=== PATIENT | female | born 1960 | race Caucasian/White ===

== ENCOUNTER → 2018-04-18 | Outpatient (CLI) | payer BC ==
--- NOTE | 2018-04-18 13:32 | Diagnostic Imaging Report ---
INDICATION: Low back pain. TIME OF EXAM: 11:35 AM FINDINGS: There is mild left convexity lumbar scoliotic curvature. There is normal lordotic curvature. Mild grade 1 spondylolisthesis of L4 on L5 is noted. Vertebral body heights are maintained. No acute compression fractures identified. There is some generalized degenerative disc disease with variable disc space narrowing and marginal spurring, greatest at L1-2 level. IMPRESSION: Mild lumbar scoliosis, spondylosis and spondylolisthesis, as described. No acute bony abnormality is detected. Dictated by: Dictated on workstation # [id number]
== END ==
LOC: RAD 11:21
PROVIDERS: ATTEND Nurse Practitioner Family
DX: M47.816 Spondylosis without myelopathy or radiculopathy, lumbar region (principal); M41.86 Other forms of scoliosis, lumbar region; M43.16 Spondylolisthesis, lumbar region
CPT/HCPCS: 72100

== ENCOUNTER 2019-03-13 05:34 | Outpatient (CLI) | payer BC ==
[~2019-03-13] VITALS: Ht 160 cm; Wt 75.9 kg
[2019-03-13] MEDS ORDERED: DILT120T3 PO (14:38)
[2019-03-13] MEDS ORDERED: RT-ALBUINH IH (14:38)
[2019-03-13] MEDS ORDERED: LOSA100T57 PO (14:38)
== END 2019-03-13 14:40 | disposition home or self-care (01) ==
LOC: PREOP 05:34
PROVIDERS: ATTEND Surgery
DX: Z01.818 Encounter for other preprocedural examination (principal)

== ENCOUNTER 2019-03-17 10:23 | Day surgery (SDC) | payer BC ==
--- NOTE | 2019-03-09 17:05 | HISTORY AND PHYSICAL ---
DATE OF SERVICE: PROCEDURE DATE: 03/17/2019. ATTENDING PRIMARY CARE PHYSICIAN: Dr. Harry. HISTORY OF PRESENT ILLNESS: The patient is a 58-year-old female who was referred over to us for episodes of reflux as well as what she reports as food getting caught in her throat. She reports this has been going on for approximately two months. She denies any nausea, vomiting and reports this is usually worse with more thicker foods as well as dry meats. She does report a history of gastroesophageal reflux disease and has been on medication in the past; however, has watched her diet and had been able to mostly controlled; however, has since developed this dysphagia. She denies any hematemesis as well as no epigastric pain or discomfort. She also reports she is in need of a colonoscopy and reports she has never had one done before. She denies any family history of any colon cancer as well as no blood in her stool. She denies any diarrhea, constipation or any abdominal pain. PAST MEDICAL HISTORY: Hypertension, gastroesophageal reflux disease, anorexia, bulimia in 1979 and 1982. PAST SURGICAL HISTORY: Tonsillectomy in 1975, appendectomy in 1969. ALLERGIES: No known drug allergies. MEDICATIONS: Losartan 100 mg daily, ProAir 90 mcg p.r.n., diltiazem 120 mg daily. SOCIAL HISTORY: Negative for smoke. Rare for alcohol. FAMILY HISTORY: Mother, breast cancer 40 years of age, hypertension. Father, diabetes. Paternal grandfather, myocardial infarction. Paternal grandmother, DVT. VITAL SIGNS: Blood pressure 180/90. Current weight 167.6, 5 feet 3 inches. REVIEW OF SYSTEMS: Well-nourished female, in no acute distress. She is not experiencing any shortness of breath or difficulty breathing. No chest pain, palpitations or diaphoresis. No nausea, vomiting, or abdominal pain. She does report episodes of dysphagia. No diarrhea or constipation. No red blood per rectum. No dark tarry stools. No fever or chills. No recent overt weight loss. All other review of systems negative. PHYSICAL EXAMINATION: CHEST: Clear. Good breath sounds bilaterally. HEART: Regular, no murmurs. EXTREMITIES: No lower extremity edema. Negative Homans sign. HEENT: No scleral icterus. NECK: No cervical lymphadenopathy. ABDOMEN: Soft, nontender, nondistended. SKIN: Warm, dry, and pink. NEUROLOGIC: Awake, alert, and oriented x3. ASSESSMENT AND PLAN: A 58-year-old female with a long-standing history of gastroesophageal reflux disease who has developed dysphagia and is also in need of a screening colonoscopy. The risks and benefits of the procedures as well as the procedures and home care instructions were explained to the patient. The patient verbalized understanding of instructions and agrees to proceed as planned. At this time, we will proceed with scheduling the patient for an EGD with possible balloon dilatation and a screening colonoscopy. Job ID: [id number] DocumentID: [id number] Dictated Date: 03/07/2019 16:51:54 Hospital Receptionist Date: 03/07/2019 17:06:10 Dictated By: ABHISHEK EPSTEIN APRN
[~2019-03-17] VITALS: Ht 160 cm; Wt 75.9 kg
[2019-03-17] VITALS (16 sets, daily range): BP systolic 92–152; BP diastolic 45–80
[~2019-03-17 10:23] MED LIST: DILT120T3 PO; LOSA100T57 PO; NS IV 500 ML 500 ML ONE; RT-ALBUINH IH
[2019-03-17] MEDS ORDERED: NS IV 500 ML 500 ML IV PRN (10:33)
[2019-03-17] MEDS ORDERED: LIDOCAINE JELLY 2% 6 ML SYRINGE MM PRN (10:45)
[2019-03-17] MEDS ORDERED: HURRICAINE EXT TUBE (BENZOCAINE) XX PRN (10:45)
[2019-03-17] MEDS ORDERED: fentaNYL INJECTION 100 MCG/2 ML AMP IVP ONE (10:45)
[2019-03-17] MEDS ORDERED: fentaNYL INJECTION 100 MCG/2 ML AMP ONE ×2 (11:57→11:58)
[2019-03-17] MEDS ORDERED: LIDOCAINE JELLY 2% 6 ML SYRINGE ONE (11:57)
[2019-03-17] MEDS ORDERED: MIDAZOLAM 5 MG/5 ML (VERSED) VIAL ONE ×3 (11:58)
[2019-03-17] MEDS ORDERED: HURRICAINE EXT TUBE (BENZOCAINE) ONE (11:58)
[2019-03-17] MEDS: MIDAZOLAM 5 MG/5 ML (VERSED) VIAL IV PRN ×7 (12:44→13:09)
--- NOTE | 2019-03-17 13:50 | Conscious Sedation/ASA ---
Conscious Sedation Pre-Proced Time 12:00 ASA Score 2 For ASA 3 and 4: Consider anesthesia and medical clearance. Also, for patients with a history of failed moderate sedation consider anesthesia. Airway Lungs Heart ASA score ASA 1: a normal healthy patient ASA 2: a patient with a mild systemic disease (mid diabetes, controlled hypertension, obesity ASA 3: a patient with a severe systemic disease that limits activity (angina, COPD, prior Myocardial infarction) ASA 4: a patient with an incapacitating disease that is a constant threat to life (CHF, renal failure) ASA 5: a moribund patient not expected to survive 24 hrs. (ruptured aneurysm) ASA 6: a declared brain- patient whose organs are being harvested. For emergent operations, add the letter E after the classification Mallampati Classification Grade 2 Sedation Plan Analgesia, Amnesia, Plan communicated to team members, Discussed options with patient/fam, Discussed risks with patient/fam The patient is an appropriate candidate to undergo the planned procedure, sedation, and anesthesia. The patient immediately re-assessed prior to indication. BRITTANIE ZEPEDA MD Mar 17, 2019 13:50
--- NOTE | 2019-03-17 13:51 | Progress Note-Pre Operative ---
Pre-Operative Progress Note H&P Reviewed The H&P was reviewed, patient examined and no changes noted. Date Seen by Provider: Mar 17, 2019 Time Seen by Provider: 12:00 Date H&P Reviewed: Mar 17, 2019 Time H&P Reviewed: 12:00 Pre-Operative Diagnosis: GERD, dysphagia, screening o BRITTANIE ZEPEDA MD Mar 17, 2019 13:51
--- NOTE | 2019-03-17 13:53 | Progress Note-Post Operative ---
Post-Operative Progess Note Surgeon (s)/Pneumatic Tester Mechanic (s) Surgeon BRITTANIE ZEPEDA MD Pneumatic Tester Mechanic: none Pre-Operative Diagnosis GERD, dysphagia, screening colo Post-Operative Diagnosis reflux esphagitis(stage 2), mild distal esoph stricture, moderate HH(2.5-3cm), mild gastritis. normal colon and rectum Procedure & Operative Findings Date of Procedure 03/17/19 Procedure Performed/Findings EGD with bx and balloon dilatation. Colonoscopy. Anesthesia Type cs Estimated Blood Loss Estimated blood loss (mL): minimal Specimens/Packing Specimens Removed ge jxn, antrum BRITTANIE ZEPEDA MD Mar 17, 2019 13:53
[2019-03-17] MEDS ORDERED: PANT40TA2 PO (13:54)
--- NOTE | 2019-03-17 13:54 | Discharge Inst-Surgical ---
D/C Lap Instructions-KIDO New, Converted, or Re-Newed RX: RX on Chart Follow Up Appt in 8-12 weeks Activity as tolerated High Fiber Diet 25g or more per day Avoid Alcohol, Caffeine, Spicy [place] and Acid foods. Drink 64 fluid oz or more of fluids per day. Symptoms to Report: Fever over 101 degree F, Nausea/Vomiting If any problems/questions: Contact your physician or go to Emergency Room BRITTANIE ZEPEDA MD Mar 17, 2019 13:54
[2019-03-17] MEDS ORDERED: ACETAMINOPHEN 325 MG TABLET PO PRN (14:00)
[2019-03-17] MEDS ORDERED: HYDROcodone/APAP 5 MG/325 MG (LORTAB) TAB PO PRN (14:00)
[2019-03-17] MEDS ORDERED: morphine INJ 10 MG/ML 1ML (SYR OR VIAL) IVP PRN ×2 (14:00)
[2019-03-17] MEDS ORDERED: ONDANSETRON 4 MG/2 ML (SDV) Z0FRAN IVP PRN (14:00)
--- NOTE | 2019-03-17 17:50 | OPERATIVE REPORT ---
DATE OF SERVICE: 03/17/2019 ATTENDING PRIMARY CARE PHYSICIAN: Nayely Harry MD PREOPERATIVE DIAGNOSES: Gastroesophageal reflux disease, dysphagia, screening colonoscopy. POSTOPERATIVE DIAGNOSES: Reflux esophagitis stage II, mild distal esophageal stricture and Schatzki's ring, small to moderate size hiatal hernia approximately 2.5 cm in size. Colon and rectum were normal. PROCEDURE: 1. EGD with biopsy and balloon dilatation. 2. Colonoscopy. SURGEON: Brittanie Zepeda MD. ANESTHESIA: Conscious sedation. ESTIMATED BLOOD LOSS: Minimal. FINDINGS: Same as postoperative diagnosis. DISPOSITION: The patient tolerated the procedure well. INDICATIONS: The patient is a 58-year-old female referred to us for gastroesophageal reflux disease as well as dysphagia. She states that the reflux has been going on for years; however, the dysphagia has been relatively new and for the past 2 months. She is also in need of a screening colonoscopy. She has not had one done before in the past. She does not report any major issues with diarrhea, no constipation as well as no red blood per rectum nor any dark tarry stools. DESCRIPTION OF PROCEDURE: The patient was brought to the endoscopy suite, laid in the left lateral decubitus position. After adequate IV pain and sedative medications and conscious sedation anesthesia, the mouthpiece was applied. The endoscope was placed in the mouth, visualizing the pharynx and hypopharyngeal region. Vocal cords, epiglottis and vallecula identified and appeared to be normal. The endoscope was then gently intubated into the esophageal opening and esophagus insufflated. The endoscope was then advanced to the first, second and third portion of esophagus. At the level of the GE junction, a reflux esophagitis stage II identified. There was also a distal esophageal stricture and Schatzki's ring identified. A biopsy was taken in this region with forceps with visualization of good hemostasis. The endoscope was then advanced in the stomach and endoscope retroflexed, visualizing a small to moderate size hiatal hernia approximately 2.5 to 3 cm in size. A mild gastritis was noted, no formal ulcerations, polyps, or any neoplasms. Pylorus and duodenum appeared normal with no distal obstructions. A biopsy was taken of the antrum to rule out H. pylori. We then proceeded with balloon dilatation of distal esophageal stricture. The balloon was placed in the stomach and pulled back to the area of stricture. We first proceeded to 2 atmospheres of pressure with no resistance. We then proceeded to 4 and 6 atmospheres of pressure with mild resistance and 20 mm in luminal diameter. The balloon was then desufflated and removed with visualization of good hemostasis as well as no mucosal tears. The endoscope was slowly withdrawn while taking a second look and suctioning of residual air with no additional findings. We then proceeded with the colonoscopy portion of the procedure. Digital rectal examination was performed, which did not show any significant hemorrhoids. Normal sphincter tone was felt and there were no palpable masses. The endoscope was then intubated and anus and rectum gently insufflated. The endoscope was then advanced to the valves of Tejeda, rectum with no polyps or any neoplasms identified. Through the sigmoid colon, no diverticulosis identified. The endoscope was then advanced to the remainder of the descending, transverse and ascending colon to the cecum. These segments were normal. No polyps or any neoplasms identified. The endoscope was then slowly withdrawn while taking a second look and suctioning of residual air with no additional findings. The patient tolerated the procedure well. We will recommend the necessary lifestyle and diet accommodation including avoidance of caffeinated beverages, spicy, greasy and acidic foods as well as taking in small and more frequent meals, avoidance of eating at night. We will start her on Protonix 40 mg daily. If she has recurrent issues with strictures or dysphagia or gastroesophageal reflux disease despite maximal medical therapy, she may be a candidate for hiatal hernia repair; however, before proceeding with the procedure, we would have her undergo the necessary tests including an esophageal manometry study to rule out esophageal dysmotility. Colonoscopy was normal and we will recommend a high fiber diet with 25 grams of fiber daily as well as significant amounts of water to promote soft stools on a daily basis. She does not need another colonoscopy for another 10 years. Job ID: [id number] DocumentID: [id number] Dictated Date: 03/17/2019 13:29:19 [place] Miner Date: 03/17/2019 17:50:05 Dictated By: BRITTANEI ZEPEDA MD
== END 2019-03-17 14:16 | disposition home or self-care (01) ==
LOC: ENDO 10:23
PROVIDERS: ATTEND Surgery
DX: Z12.11 Encounter for screening for malignant neoplasm of colon (principal); K21.0 Gastro-esophageal reflux disease with esophagitis; K22.2 Esophageal obstruction; K29.70 Gastritis, unspecified, without bleeding; J44.9 Chronic obstructive pulmonary disease, unspecified; I10 Essential (primary) hypertension; Z90.89 Acquired absence of other organs; Z79.899 Other long term (current) drug therapy; Z80.3 Family history of malignant neoplasm of breast; Z82.49 Family history of ischemic heart disease and other diseases of the circulatory system; Z83.3 Family history of diabetes mellitus

== ENCOUNTER → 2019-07-13 | Outpatient (CLI) | payer BC ==
[~2019-07-13] MED LIST changes: -NS IV 500 ML 500 ML ONE; +PANT40TA2 PO
[2019-07-13 09:49] LABS: BASOPHILS % (AUTO) 0 % (0-10); EOSINOPHILS # (AUTO) 0.1 10^3/uL (0.0-0.3); EOSINOPHILS % (AUTO) 1 % (0-10); HEMATOCRIT 42 % (35-52); HEMOGLOBIN 13.9 G/DL (11.5-16.0); LYMPHOCYTES # (AUTO) 2.8 X 10^3 (1.0-4.0); LYMPHOCYTES % (AUTO) 21 % (12-44); MEAN CORPUSCULAR HEMOGLOBIN 28 PG (25-34); MEAN CORPUSCULAR HGB CONC 33 G/DL (32-36); MEAN CORPUSCULAR VOLUME 83 FL (80-99); MEAN PLATELET VOLUME 10.3 FL (7.4-10.4); MONOCYTES % (AUTO) 7 % (0-12); NEUTROPHILS # (AUTO) 9.4 X 10^3 (1.8-7.8); NEUTROPHILS % (AUTO) 71 % (42-75); PLATELET COUNT 241 10^3/uL (130-400); RED CELL DISTRIBUTION WIDTH 13.3 % (10.0-14.5); WHITE BLOOD COUNT 13.3 10^3/uL (4.3-11.0)
[2019-07-13 10:03] LABS: ALBUMIN 4.2 GM/DL (3.2-4.5); CHLORIDE 106 MMOL/L (98-107); SODIUM 139 MMOL/L (135-145)
[2019-07-13 10:05] LABS: CALCIUM 9.4 MG/DL (8.5-10.1)
[2019-07-13 10:06] LABS: GLUCOSE 86 MG/DL (70-105); TOTAL PROTEIN 7.2 GM/DL (6.4-8.2)
[2019-07-13 10:07] LABS: CARBON DIOXIDE 23 MMOL/L (21-32)
[2019-07-13 10:08] LABS: BILIRUBIN,TOTAL 0.6 MG/DL (0.1-1.0)
[2019-07-13 10:09] LABS: ALKALINE PHOSPHATASE 68 U/L (40-136); CREATININE SERUM 0.85 MG/DL (0.60-1.30); GFR ESTIMATED > 60
[2019-07-13 10:10] LABS: BUN/CREATININE RATIO 18
[2019-07-13 10:12] LABS: ALANINE AMINOTRANSFERASE 16 U/L (0-55)
== END ==
LOC: LAB 09:25
PROVIDERS: ATTEND Nurse Practitioner Family
DX: M79.661 Pain in right lower leg (principal); R50.9 Fever, unspecified; Z20.828 Contact with and (suspected) exposure to other viral communicable diseases
CPT/HCPCS: 36415; 80053; 85025; 85379; 86769

== ENCOUNTER → 2019-07-18 | Outpatient (CLI) | payer BC ==
[~2019-07-18] MED LIST changes: +ACET325C7 PO; +CYAN250T PO; +DILT-27 PO; +HYDR-3922 PO; +LACT1CAP62 PO; +OMEP20CA18 PO; +RIVA15TA PO; +RIVA20TA PO
--- NOTE | 2019-07-18 12:21 | Diagnostic Imaging Report ---
PROCEDURE: US right lower extremity venous. TECHNIQUE: Multiple real-time grayscale images were obtained over the right lower extremity in various projections. Additional spectral analysis and color Doppler duplex images were also obtained. INDICATION: Pain and swelling. FINDINGS: There is nonocclusive thrombus in the right popliteal vein and peroneal trunk. The remaining right lower venous system is patent. There are no abnormal fluid collections or masses. IMPRESSION: Nonocclusive deep venous thrombosis in the right popliteal vein extending into the peroneal trunk Dictated by: Dictated on workstation # [id number]
== END ==
LOC: RAD 09:50
PROVIDERS: ATTEND Nurse Practitioner Family
DX: I82.431 Acute embolism and thrombosis of right popliteal vein (principal); I82.451 Acute embolism and thrombosis of right peroneal vein; R79.89 Other specified abnormal findings of blood chemistry

== ENCOUNTER → 2019-07-19 | Outpatient (CLI) | payer BC | LOC: RAD 13:15 | PROVIDERS: ATTEND Nurse Practitioner Family | DX: Z53.9 Procedure and treatment not carried out, unspecified reason (principal); R22.0 Localized swelling, mass and lump, head; R09.81 Nasal congestion ==

== ENCOUNTER → 2019-09-01 | Outpatient (CLI) | payer BC ==
--- NOTE | 2019-09-01 16:58 | Diagnostic Imaging Report ---
PROCEDURE: CT Sinus w/o Contrast. TECHNIQUE: Multiple contiguous axial images were obtained through the sinuses without the use of intravenous contrast. Coronal reformations were performed. All CT scans use one or more of the following dose optimizing techniques: automated exposure control, MA and/or KvP adjustment based on a patient size and exam type, or iterative reconstruction. INDICATION: Chronic sinusitis. Headaches. Left-sided pain. COMPARISON: None FINDINGS: No evidence of mucosal thickening or fluid levels in the paranasal sinuses. The ostiomeatal complexes are patent. The sphenoethmoid and frontoethmoid recesses are patent and unremarkable. The mastoid air cells are well pneumatized. The bony nasal septum is deviated to the left. A bony nasal spur is seen projecting from the left aspect of the nasal septum displacing the left inferior turbinate. No acute facial fractures. The globes and orbits are symmetric and unremarkable. Included intracranial contents show no acute abnormalities. The included soft tissues of the head are normal in appearance. IMPRESSION: 1. Normal appearance of the paranasal sinuses. No evidence of active sinus disease. 2. Leftward deviation of the bony nasal septum with a bony nasal spur displacing the left inferior turbinate. Dictated by: Dictated on workstation # [id number]
== END ==
LOC: RAD 13:44
PROVIDERS: ATTEND Otolaryngology Otolaryngology/Facial Plastic Surgery
DX: J32.9 Chronic sinusitis, unspecified (principal); J34.2 Deviated nasal septum; J34.89 Other specified disorders of nose and nasal sinuses
CPT/HCPCS: 70486

== ENCOUNTER → 2019-10-10 | Outpatient (CLI) | payer BC | LOC: RAD 08:15 | PROVIDERS: ATTEND Nurse Practitioner Family | DX: Z12.31 Encounter for screening mammogram for malignant neoplasm of breast (principal) | CPT/HCPCS: 77063; 77067 ==

== ENCOUNTER → 2019-12-29 | Outpatient (CLI) | payer BC ==
--- NOTE | 2019-12-29 14:47 | Diagnostic Imaging Report ---
INDICATION: Right leg pain. Right leg venous Doppler study was performed in the routine fashion with color flow Doppler and waveform analysis. FINDINGS: The right common femoral vein, superficial femoral vein, popliteal vein and visualized portion of the tibial veins show normal compressibility and venous flow patterns. There is normal augmentation. Previous DVT seen on 07/18/2019 has resolved. IMPRESSION: No evidence of deep vein thrombosis of the major veins of the right leg. Dictated by: Dictated on workstation # [id number]
== END ==
LOC: RAD 14:30
PROVIDERS: ATTEND Family Medicine
DX: M79.604 Pain in right leg (principal); Z86.718 Personal history of other venous thrombosis and embolism

== ENCOUNTER 2020-01-30 05:33 | Outpatient (RCR) | payer BC ==
[~2020-01-30] VITALS: Ht 160 cm; Wt 77.2 kg
[~2020-01-30 05:33] MED LIST changes: +MAGN400T39 PO; +NRT10C PO; +PANT40TA52 PO; +SUCR1TAB PO; +VALA500T7 PO
== END 2020-01-30 10:54 | disposition home or self-care (01) ==
LOC: PREOP 05:33
PROVIDERS: ATTEND Otolaryngology Otolaryngology/Facial Plastic Surgery
DX: Z01.818 Encounter for other preprocedural examination (principal); J34.2 Deviated nasal septum; J34.3 Hypertrophy of nasal turbinates; Z20.828 Contact with and (suspected) exposure to other viral communicable diseases
CPT/HCPCS: 87635

== ENCOUNTER 2020-02-01 07:32 | Day surgery (SDC) | payer BC ==
[~2020-02-01] VITALS: Ht 160 cm; Wt 77.2 kg
[2020-02-01] VITALS (10 sets, daily range): BP systolic 140–169; BP diastolic 67–87
[2020-02-01 08:13] LABS: BASOPHILS # (AUTO) 0.1 10^3/uL (0.0-0.1); BASOPHILS % (AUTO) 1 % (0-10); EOSINOPHILS # (AUTO) 0.1 10^3/uL (0.0-0.3); EOSINOPHILS % (AUTO) 1 % (0-10); HEMATOCRIT 39 % (35-52); HEMOGLOBIN 12.5 g/dL (11.5-16.0); LYMPHOCYTES # (AUTO) 1.9 10^3/uL (1.0-4.0); LYMPHOCYTES % (AUTO) 28 % (12-44); MEAN CORPUSCULAR HEMOGLOBIN 27 pg (25-34); MEAN CORPUSCULAR HGB CONC 32 g/dL (32-36); MEAN CORPUSCULAR VOLUME 84 fL (80-99); MEAN PLATELET VOLUME 10.4 fL (9.0-12.2); MONOCYTES # (AUTO) 0.6 10^3/uL (0.0-1.0); MONOCYTES % (AUTO) 9 % (0-12); NEUTROPHILS # (AUTO) 4.3 10^3/uL (1.8-7.8); NEUTROPHILS % (AUTO) 61 % (42-75); PLATELET COUNT 270 10^3/uL (130-400)
[2020-02-01] MEDS: LACTATED RINGERS 1,000 ML IV PRN ×2 (08:21→10:19)
[2020-02-01 08:25] LABS: BUN/CREATININE RATIO 14; CALCIUM 9.4 MG/DL (8.5-10.1); CARBON DIOXIDE 24 MMOL/L (21-32); CHLORIDE 110 MMOL/L (98-107); CREATININE SERUM 0.84 MG/DL (0.60-1.30); GFR ESTIMATED > 60; GLUCOSE 99 MG/DL (70-105); SODIUM 143 MMOL/L (135-145)
[2020-02-01] MEDS ORDERED: proPOfol 200 MG/20 ML (DIPRIVAN) VIAL IV ONE (08:30)
[2020-02-01] MEDS ORDERED: MIDAZOLAM 2 MG/2 ML (VERSED) VIAL ONE (08:30)
[2020-02-01] MEDS ORDERED: LIDOCAINE PF 2% 5 ML (XYLOCAINE) VIAL ONE (08:30)
[2020-02-01] MEDS ORDERED: ROCURONIUM 10 MG/ML 5 ML SYRINGE IV ONE (08:30)
[2020-02-01] MEDS ORDERED: ONDANSETRON 4 MG/2 ML (SDV) Z0FRAN ONE (08:30)
--- NOTE | 2020-02-01 08:30 | Progress Note-Pre Operative ---
Pre-Operative Progress Note H&P Reviewed The H&P was reviewed, patient examined and no changes noted. Date Seen by Provider: Feb 01, 2020 Time Seen by Provider: 08:30 Date H&P Reviewed: Feb 01, 2020 Time H&P Reviewed: 08:30 Pre-Operative Diagnosis: Deviated Nasal Septum, Bilat Hyper of the INf Turbs EFE JOSHI MD Feb 01, 2020 08:30
[2020-02-01] MEDS ORDERED: fentaNYL INJECTION 100 MCG/2 ML AMP ONE (08:31)
[2020-02-01] MEDS ORDERED: LIDOCAINE/EPI 1%-1:100,000 (XYLOCAINE) 20ML ONE (08:31)
[2020-02-01] MEDS ORDERED: COCAINE HCL 4% 2 ML SYR ONE (08:31)
[2020-02-01] MEDS ORDERED: PHENYLEPHRINE 0.5% NASAL SPR (NEO-SYNEPHRINE) REG ONE (08:31)
[2020-02-01] MEDS ORDERED: GLYCOPYRROLATE 0.2 MG/ML (ROBINUL) 2 ML VIAL ONE (08:32)
[2020-02-01] MEDS ORDERED: NEOSTIGMINE 3 MG/3 ML VIAL ONE (08:32)
[2020-02-01] MEDS ORDERED: SEVOFLURANE (ULTANE) 15 ML INHAL SOLN ONE ×3 (08:32→09:57)
--- NOTE | 2020-02-01 09:09 | Progress Note-Post Operative ---
Post-Operative Progess Note Surgeon (s)/Wood Planer (s) Surgeon EFE JOSHI MD Wood Planer n/a Pre-Operative Diagnosis Deviated Nasal Septum, Bilat Hyper of the INf Turbs Post-Operative Diagnosis same Post-Op Procedure Note Date of Procedure: Feb 01, 2020 Name of Procedure Performed: Nasal Septoplasty, Bilat Red of Inf Turbs Description & Findings Description and Findings: n/a Anesthesia Type get Estimated Blood Loss minimal Packing none. Specimen(s) collected/removed nasal septum EFE JOSHI MD Feb 01, 2020 09:09
[2020-02-01] MEDS ORDERED: PROMETHAZINE INJ 25 MG/ML (PHENERGAN) AMP IVP PRN (09:15)
[2020-02-01] MEDS ORDERED: D5 1/2 NS W/KCL 20 MEQ/L 1,000 ML IV SCH (09:15)
[2020-02-01] MEDS ORDERED: ACETAMINOPHEN 325 MG TABLET PO PRN (09:15)
[2020-02-01] MEDS ORDERED: HYDROcodone/APAP 5 MG/325 MG (LORTAB) TAB PO PRN (09:15)
[2020-02-01] MEDS ORDERED: fentaNYL INJECTION 100 MCG/2 ML AMP IVP ONE (09:30)
[2020-02-01] MEDS ORDERED: MEPERIDINE (DEMEROL) INJ 50 MG/ML IVP ONE (09:30)
[2020-02-01] MEDS ORDERED: morphine INJ 10 MG/ML 1ML (SYR OR VIAL) IVP ONE (09:30)
[2020-02-01] MEDS ORDERED: ONDANSETRON 4 MG/2 ML (SDV) Z0FRAN IVP PRN (09:30)
[2020-02-01] MEDS ORDERED: PHENYLEPHRINE 100 MCG/ML 10 ML (ANESTHESIA) SYR ONE (09:45)
[2020-02-01] MEDS ORDERED: AMOX-355 PO (10:16)
[2020-02-01] MEDS ORDERED: ACHD5005 PO (10:16)
--- NOTE | 2020-02-01 10:54 | Anesthesia-General Post-Op ---
General Patient Condition Mental Status/LOC: Same as Preop Cardiovascular: Satisfactory Nausea/Vomiting: Absent Respiratory: Satisfactory Pain: Controlled Complications: Absent Post Op Complications Complications None Follow Up Care/Instructions Patient Instructions None needed. Anesthesia/Patient Condition Patient Condition Patient is doing well, no complaints, stable vital signs, no apparent adverse anesthesia problems. No complications reported per nursing. THANIA RUIZ CRNA Feb 01, 2020 10:54
== END 2020-02-01 12:05 | disposition home or self-care (01) ==
LOC: SDC 07:32
PROVIDERS: ATTEND Otolaryngology Otolaryngology/Facial Plastic Surgery
DX: J34.2 Deviated nasal septum (principal); J34.89 Other specified disorders of nose and nasal sinuses; J32.3 Chronic sphenoidal sinusitis; R09.81 Nasal congestion; I10 Essential (primary) hypertension; J45.909 Unspecified asthma, uncomplicated; K21.9 Gastro-esophageal reflux disease without esophagitis; Z79.899 Other long term (current) drug therapy; Z79.01 Long term (current) use of anticoagulants; Z79.51 Long term (current) use of inhaled steroids; Z86.718 Personal history of other venous thrombosis and embolism
CPT/HCPCS: 36415; 80048; 85025; 87081; 88300

== ENCOUNTER → 2020-02-05 | Outpatient (CLI) | payer BC ==
[~2020-02-05] MED LIST changes: +ACHD5005 PO; +AMOX-355 PO
--- NOTE | 2020-02-05 12:19 | Diagnostic Imaging Report ---
PROCEDURE: US right lower extremity venous. TECHNIQUE: Multiple real-time grayscale images were obtained over the right lower extremity in various projections. Additional spectral analysis and color Doppler duplex images were also obtained. INDICATION: Right leg pain EXAMINATION: Grayscale and color Doppler evaluation of the deep veins of the right lower extremity were performed with waveform analysis. FINDINGS: Continuous venous flow is present. No intraluminal filling defect is identified. There is normal compressibility and response to augmentation. No abnormal perivascular fluid collection is identified. IMPRESSION: No ultrasound evidence of right lower extremity deep venous thrombosis. Dictated by: Dictated on workstation # [id number]
== END ==
LOC: RAD 11:07
PROVIDERS: ATTEND Nurse Practitioner Family
DX: M79.661 Pain in right lower leg (principal); Z86.718 Personal history of other venous thrombosis and embolism

== ENCOUNTER 2020-02-27 13:40 | Outpatient (RCR) | payer BC ==
[~2020-02-27 13:40] MED LIST changes: -CYAN250T PO; +CYAN250T3 PO
== END 2020-05-27 | disposition home or self-care (01) ==
LOC: ONC 13:40
PROVIDERS: ATTEND Internal Medicine Hematology & Oncology
DX: I82.451 Acute embolism and thrombosis of right peroneal vein (principal); I82.431 Acute embolism and thrombosis of right popliteal vein; Z86.718 Personal history of other venous thrombosis and embolism; Z90.89 Acquired absence of other organs
CPT/HCPCS: 99214

== ENCOUNTER → 2020-06-21 | Outpatient (CLI) | payer BC ==
--- NOTE | 2020-06-21 18:31 | Diagnostic Imaging Report ---
INDICATION: Right breast lump. CORRELATION is made with diagnostic mammogram earlier the same day. Sonographic interrogation of the area of lump right breast was performed. This corresponds to the 7-8 o'clock location. No sonographic abnormality is seen. No solid or cystic mass is detected. IMPRESSION: BI-RADS Category 1. No sonographic abnormality is detected. Even so, close clinical and self breast exams are recommended to confirm stability of the area of palpable abnormality. Dictated by: Dictated on workstation # [id number]
--- NOTE | 2020-06-21 18:34 | Diagnostic Imaging Report ---
INDICATION: Right breast pain and right breast lump. COMPARISON is made with prior mammograms of 10/10/2019 and 05/04/2016. Unilateral right 2-D and 3-D diagnostic mammography was performed with CAD. BB marker was placed at the area of pain and lump in the lateral right breast. Scattered fibroglandular tissues in the right breast are noted. There is some density in the outer right breast on the CC view at posterior depth but no discrete mass is seen. This may represent superimposed tissue. The MLO and ML views are unremarkable. No suspicious microcalcifications are seen. Right axilla is unremarkable. IMPRESSION: BI-RADS Category 0 No mammographic features suspicious for malignancy are identified. Even so, directed sonographic interrogation of the area of pain and lump in the lateral right breast is recommended and will be performed today. ACR BI-RADS Category 0: Incomplete. (Needs additional imaging evaluation). Result letter will be mailed to the patient. Note: At least 10% of breast cancer is not imaged by mammography. Dictated by: Dictated on workstation # [id number]
== END ==
LOC: RAD 14:06
PROVIDERS: ATTEND Family Medicine
DX: N63.10 Unspecified lump in the right breast, unspecified quadrant (principal); N64.4 Mastodynia
CPT/HCPCS: 76642; 77065; G0279

== ENCOUNTER → 2020-07-18 | Outpatient (CLI) | payer BC | LOC: EDSTATUS 05-28 09:46 → ONC 09:50 | PROVIDERS: ATTEND Internal Medicine Hematology & Oncology | DX: Z79.01 Long term (current) use of anticoagulants (principal); Z86.718 Personal history of other venous thrombosis and embolism | CPT/HCPCS: 99213 ==

== ENCOUNTER 2020-08-14 15:15 | Outpatient (RCR) | payer BC | END 2020-08-14 16:00 | disposition home or self-care (01) | PROVIDERS: ATTEND Nurse Practitioner Family | DX: M25.512 Pain in left shoulder (principal); M54.9 Dorsalgia, unspecified ==

== ENCOUNTER → 2021-06-23 | Outpatient (CLI) | payer BC ==
--- NOTE | 2021-06-24 08:52 | Diagnostic Imaging Report ---
3-D bilateral mammogram screening with CAD. This study was compared to the prior exams as far back as 05/04/2016. At this time there are no current complaints. The current study was also evaluated with a Computer Aided Detection (CAD) system. FINDINGS: The fibroglandular tissue in both breasts is heterogeneously dense. This does limit the sensitivity of this exam. Overall, there does not appear to have been any significant change when compared to the prior study. No primary or secondary sign of malignancy is noted. IMPRESSION: There is no radiographic evidence for malignancy. ACR category 1 ACR BI-RADS Category 1: Negative. Result letter will be mailed to the patient. Note: At least 10% of breast cancer is not imaged by mammography. Dictated by: Dictated on workstation # [id number]
== END ==
LOC: RAD 08:45
PROVIDERS: ATTEND Family Medicine
DX: Z12.31 Encounter for screening mammogram for malignant neoplasm of breast (principal)
CPT/HCPCS: 77063; 77067

== ENCOUNTER → 2021-10-02 | Outpatient (CLI) | payer BC ==
--- NOTE | 2021-10-02 16:08 | Diagnostic Imaging Report ---
PROCEDURE: US left lower extremity venous. TECHNIQUE: Multiple real-time grayscale images were obtained over the left lower extremity in various projections. Additional duplex Doppler and color Doppler images were also obtained. INDICATION: Left lower extremity pain. There is no evidence of left lower extremity DVT. Left lower extremity deep venous system shows normal compressibility with normal response to augmentation and Valsalva. No fluid collection or mass is detected. IMPRESSION: No evidence of left lower extremity DVT. Dictated by: Dictated on workstation # [id number]
== END ==
LOC: RAD 13:43
PROVIDERS: ATTEND Nurse Practitioner Family
DX: M79.662 Pain in left lower leg (principal)

== ENCOUNTER → 2022-08-13 | Outpatient (CLI) | payer BC ==
[~2022-08-13] MED LIST changes: +ALBU8.5H6 IH; -LOSA100T57 PO; +LOSA100T58 PO; -RT-ALBUINH IH
--- NOTE | 2022-08-13 10:56 | Diagnostic Imaging Report ---
Indication: Routine screening. Comparison is made with prior mammograms from 06/23/2021 and 10/10/2019. 2-D and 3-D bilateral screening mammography was performed with CAD. Scattered fibroglandular densities are identified bilaterally. The overall parenchymal pattern is stable. No mass or malignant-appearing microcalcifications are seen. Axillae are unremarkable. IMPRESSION: BI-RADS Category 1 No mammographic features suspicious for malignancy are identified. ACR BI-RADS Category 1: Negative. Result letter will be mailed to the patient. Note: At least 10% of breast cancer is not imaged by mammography. Dictated by: Dictated on workstation # [id number]
== END ==
LOC: RAD 07:27
PROVIDERS: ATTEND Family Medicine
DX: Z12.31 Encounter for screening mammogram for malignant neoplasm of breast (principal)
CPT/HCPCS: 77063; 77067

== ENCOUNTER → 2022-09-22 | Outpatient (CLI) | payer BC ==
--- NOTE | 2022-09-22 10:37 | Diagnostic Imaging Report ---
PROCEDURE: MR imaging cervical spine without contrast. TECHNIQUE: Multiplanar, multisequence MR imaging of the cervical spine was performed without contrast. INDICATION: Neck pain. Cervical spinal cord has a normal volume morphology and signal intensity. No suspicious marrow signal pathology. There is trace grade 1 degenerative retrolisthesis C5 on C6 of 1 to 2 mm. Mid to lower cervical spondylosis and facet arthrosis. There are chronic degenerative findings present but no acute-appearing bony pathology. Craniocervical relationship to C1-C2 and C2-C3 levels and discs normal. No stenosis. Prior C3-C4: Slight disc bulge and desiccation result in no significant canal foraminal or recess stenosis. C4-C5: Left greater than right uncovertebral joint spurring and facet arthrosis result in moderate left foraminal narrowing with eccentric leftward disc bulge, canal and right foramen widely patent. C5-C6: Osteophyte disc material and uncovertebral joint spurring indents the ventral thecal sac. There is mild canal stenosis. There is a moderate to severe degree of biforaminal stenosis owing to disc material and uncovertebral joint spurs. C6-C7: Disc bulge and endplate osteophytes mildly indent the ventral thecal sac with borderline mild canal stenosis. There is mild biforaminal narrowing. C7-T1: This level and disc unremarkable, no stenosis. IMPRESSION: Degenerative changes to the discs, endplates and uncovertebral joints result in multilevel foraminal greater than canal stenoses as well as account for slight grade 1 degenerative listhesis. Normal cord. No acute-appearing abnormality. Dictated by: Dictated on workstation # [id number]
== END ==
LOC: RAD 08:16
PROVIDERS: ATTEND Family Medicine
DX: M48.02 Spinal stenosis, cervical region (principal); M47.22 Other spondylosis with radiculopathy, cervical region
CPT/HCPCS: 72141